=== PATIENT | male | born 1985 | race Caucasian/White ===

== ENCOUNTER 2018-07-10 19:51 | Emergency (ER) | payer BC, SELFPAY ==
[2018-07-10 20:11] VITALS: BP 143/85; PULSE 92; RESP 18; TEMP 37.1; O2SAT 99; BMI 36.9
--- NOTE | 2018-07-10 21:12 | ED.URI ---
HPI - URI/Sore Throat <JULIUS Calderon - Last Filed: 07/10/18 22:50> General Chief Complaint: Upper Respiratory Symptoms Stated Complaint: head congestion, fever, cough Time Seen by Provider: 07/10/18 20:25 Source: patient Mode of arrival: ambulatory Limitations: no limitations History of Present Illness HPI Narrative: healthy 33-year-old male that is a nonsmoker for complaint of having chills and fever over the past for days. He has had cough during the same timeframe along with nasal congestion. He also reports having sore throat and body aches. He states he has had other contacts at work that have had similar symptoms. He is tolerating p.o. intake. No nausea or vomiting. He denies any stressors or relievers of his symptoms. No other concerns or complaints at this timeframe. MD Complaint: cough, sore throat and nasal congestion Related Data Allergies Allergy/AdvReac Type Severity Reaction Status Date / Time No Known Drug Allergies Allergy Verified 07/10/18 20:21 Review of Systems <JULIUS Calderon - Last Filed: 07/10/18 22:50> Constitutional Reports chills and Reports fever(s) Eyes Denies change in vision, Denies eye discharge, Denies irritation and Denies loss of vision ENT Ears, Nose, Mouth, and Throat: Denies change in voice, Denies neck pain and Denies sore throat Cardiovascular Denies dyspnea and Denies dyspnea on exertion Respiratory Reports cough, Denies dyspnea, Denies dyspnea on exertion and Denies wheezing Gastrointestinal Gastrointestinal: Denies abdominal pain, Denies change in bowel habits, Denies diarrhea, Denies nausea and Denies vomiting Musculoskeletal Denies neck pain Integumentary/Breasts Denies pruritus, Denies erythema, Denies rash and Denies wounds Neurologic Denies loss of vision Allergic/Immunologic Denies wheezing PFSH <JULIUS Calderon - Last Filed: 07/10/18 22:50> Social History Smoking Status: Never smoker Social History Smoking Status: Never smoker Exam <JULIUS Calderon - Last Filed: 07/10/18 22:50> Initial Vital Signs Initial Vital Signs: Vital Signs Temperature 98.8 F 07/10/18 20:11 Pulse Rate 92 H 07/10/18 20:11 Respiratory Rate 18 07/10/18 20:11 Blood Pressure 143/85 H 07/10/18 20:11 Pulse Oximetry 99 07/10/18 20:11 Const General: cooperative and well developed Nutritional Appearance: well nourished Orientation: alert, awake, oriented x3 and not confused HENMT Mouth: oral mucosae normal and moist mucous membranes Throat: posterior oropharynx normal Resp Effort & Inspection: normal respiratory effort, able to speak in complete sentences, no respiratory distress and no use of accessory muscles Auscultation: clear to auscultation bilaterally, no rales, no rhonchi and no wheezes Cardio Rate: regular rate Rhythm: regular rhythm Heart Sounds: no click, no gallops, no murmurs and no rubs Pulses: normal peripheral pulses Skin General: no rashes or lesions noted, No jaundice and No petechiae Neuro General: alert, oriented x3, gait normal and no focal motor deficits Speech: speech normal <Beatriz Lockwood DO - Last Filed: 07/11/18 03:04> Initial Vital Signs Initial Vital Signs: Vital Signs Temperature 98.8 F 07/10/18 20:11 Pulse Rate 92 H 07/10/18 20:11 Respiratory Rate 18 07/10/18 20:11 Blood Pressure 143/85 H 07/10/18 20:11 Pulse Oximetry 99 07/10/18 20:11 Course <JULIUS Calderon - Last Filed: 07/10/18 22:50> Orders Ordered: ED Orders 07/10/18 20:15 Influenza A and B by PCR Rapid Stat Vital Signs - 8 hr 07/10/18 20:11 07/10/18 21:57 Temperature 98.8 F 99.7 F H Pulse Rate 92 H 94 H Respiratory Rate 18 18 Blood Pressure 143/85 H Pulse Oximetry 99 97 <Beatriz Lockwood DO - Last Filed: 07/11/18 03:04> Orders Ordered: ED Orders 07/10/18 20:15 Influenza A and B by PCR Rapid Stat Vital Signs - 8 hr 07/10/18 20:11 07/10/18 21:57 Temperature 98.8 F 99.7 F H Pulse Rate 92 H 94 H Respiratory Rate 18 18 Blood Pressure 143/85 H Pulse Oximetry 99 97 MDM - URI/Sore Throat <JULIUS Calderon - Last Filed: 07/10/18 22:50> Differential Diagnosis Differential diagnosis: Likely upper respiratory infection and viral infection Lab Data Lab Results 07/10/18 Range/Units 20:15 Influenza A & B (PCR) Positive, type a A (Negative) MDM Narrative Medical decision making narrative: Influenza swab was obtained and was positive for influenza A. supportive care with plenty of fluids and rest. [id number] Tylenol or Motrin as needed for discomfort and fever. Saline irrigation and hot showers as needed for nasal congestion. Follow up with primary care provider. Return emergency room for any worsening symptoms. <Beatriz Lockwood DO - Last Filed: 07/11/18 03:04> Lab Data Lab Results 07/10/18 Range/Units 20:15 Influenza A & B (PCR) Positive, type a A (Negative) Discharge Plan Departure Patient Disposition: Home Clinical Impression: Influenza Discharge Date/Time: 07/10/18 21:58 Interventions: ED Discharge Assessment Last Done: 07/10/18 21:57 Instructions: DI for Influenza -- Adult Activity Restrictions/Additional Instructions: Influenza swab was obtained and was positive for influenza A. supportive care with plenty of fluids and rest. [id number] Tylenol or Motrin as needed for discomfort and fever. Saline irrigation and hot showers as needed for nasal congestion. Follow up with primary care provider. Return emergency room for any worsening symptoms. Referrals: [facility] [Provider Group] Stand Alone Forms: Work Release Note, Work/School Release <Beatriz Lockwood DO - Last Filed: 07/11/18 03:04> Cosign ED Attending Cosdanisature Attestation: I was immediately available in the department for consultation. Documentation has been reviewed. I agree with assessment and plan.
[2018-07-10 21:57] VITALS: PULSE 94; RESP 18; TEMP 37.6; O2SAT 97
== END 2018-07-10 21:58 | disposition home or self-care (01) ==
PROVIDERS: Emergency Medicine; Emergency Provider Nurse Practitioner Family
DX: J11.1 Influenza due to unidentified influenza virus with other respiratory manifestations (principal)
CPT/HCPCS: 87400; 99282